=== PATIENT | male | born 1955 | race Caucasian/White ===

== ENCOUNTER 2020-08-05 14:11 | Emergency (ER) | payer OTHER ==
[~2020-08-05] VITALS: Ht 175.3 cm; Wt 88.5 kg
[~2020-08-05 14:11] MED LIST: ASPI81EC; NAPR220
[2020-08-05] MEDS ORDERED: ABAT250V (14:21)
[2020-08-05] MEDS ORDERED: ONDA4ODT MM (15:46)
[2020-08-05] MEDS ORDERED: Norco 7.5-3251 EACH PO (15:46)
== END 2020-08-05 16:03 | disposition home or self-care (01) ==
LOC: ER 14:11
DX: R11.2 Nausea with vomiting, unspecified (principal); K86.9 Disease of pancreas, unspecified; Z88.0 Allergy status to penicillin; Z88.2 Allergy status to sulfonamides; I10 Essential (primary) hypertension; G89.29 Other chronic pain; J44.9 Chronic obstructive pulmonary disease, unspecified
CPT/HCPCS: 36415; 93005; 93010; 96374; 96375; 99284-25; J0780; J1170; J7030

== ENCOUNTER 2020-08-12 10:16 | Emergency (ER) | payer OTHER ==
[~2020-08-12] VITALS: Ht 177.8 cm; Wt 86.2 kg
[~2020-08-12 10:16] MED LIST changes: +ABAT250V; +Norco 7.5-3251 EACH PO; +ONDA4ODT MM
[2020-08-12 10:40] LABS: BASOPHILS ABSOLUTE AUTO 0.05 K/mm3 (0.00-0.23); BASOPHILS PERCENT AUTO 1 % (0-2); EOSINOPHILS ABSOLUTE AUTO 0.19 K/mm3 (0.00-0.68); EOSINOPHILS PERCENT AUTO 2 % (0-6); Hematocrit 43.9 % (37.0-53.0); Hemoglobin 14.7 g/dL (13.5-17.5); IMMATURE GRAN ABSOLUTE AUTO 0.03 K/mm3 (0.00-0.10); IMMATURE GRAN PERCENT AUTO 0 % (0-1); LYMPHOCYTES ABSOLUTE AUTO 3.53 K/mm3 (0.84-5.20); LYMPHOCYTES PERCENT AUTO 32 % (21-46); MONOCYTES ABSOLUTE AUTO 1.01 K/mm3 (0.16-1.47); MONOCYTES PERCENT AUTO 9 % (4-13); Mean Corpuscular HGB 32.2 pg (26.0-34.0); Mean Corpuscular HGB Conc 33.5 g/dL (31.5-36.5); Mean Corpuscular Volume 96 fL (80-100); Mean Platelet Volume 10.6 fL (9.1-12.4); NEUTROPHILS ABSOLUTE AUTO 6.17 K/mm3 (1.96-9.15); NEUTROPHILS PERCENT AUTO 56 % (41-73); Platelet Count 218 K/mm3 (150-400); RDW Coefficient Variation 12.9 % (11.7-14.2); RDW Standard Deviation 46.5 fL (35.1-46.3); Red Blood Cell Count 4.56 M/mm3 (4.30-5.90); White Blood Cell Count 10.98 K/mm3 (4.00-11.30)
[2020-08-12 10:59] LABS: Alanine Aminotransfer (ALT/SGP 16 U/L (12-78); Albumin, Blood 3.8 g/dL (3.4-5.0); Albumin/Globulin Ratio 1.1 (0.8-1.8); Alk Phos 71 U/L (50-136); Anion Gap 6 mmol/L (6-16); Aspartate Aminotrans (AST/SGOT 17 U/L (12-37); Bilirubin, Total 0.6 mg/dL (0.1-1.0); Blood Urea Nitrogen 6 mg/dL (8-24); Bun/Creatinine Ratio 6.4 (12.0-20.0); CO2, Blood 24 mmol/L (21-32); Calcium, Blood 8.8 mg/dL (8.5-10.1); Chloride, Blood 107 mmol/L (98-108); Creatinine, Blood 0.94 mg/dL (0.60-1.20); Globulin, Blood 3.6 g/dL (2.2-4.0); Glomerular Filtration Rate >60 (60-); Glucose, Blood 101 mg/dL (70-99); Sodium, Blood 137 mmol/L (136-145); Total Protein, Blood 7.4 g/dL (6.4-8.2); Troponin I <0.015 ng/mL (0.000-0.040)
== END 2020-08-12 12:48 | disposition home or self-care (01) ==
LOC: ER 10:16
PROVIDERS: Emergency Medicine
DX: R00.1 Bradycardia, unspecified (principal); I10 Essential (primary) hypertension; J44.9 Chronic obstructive pulmonary disease, unspecified; Z88.0 Allergy status to penicillin; Z88.2 Allergy status to sulfonamides
CPT/HCPCS: 36415; 80053; 84484; 85025; 93005; 93010; 93246; 99284-25; J7030

== ENCOUNTER 2021-10-08 22:03 | Inpatient (IN) | payer OTHER ==
[~2021-10-08] VITALS: Ht 177.8 cm; Wt 63.7 kg
[2021-10-08 22:33] LABS: BASOPHILS ABSOLUTE AUTO 0.08 K/mm3 (0.00-0.23); BASOPHILS PERCENT AUTO 1 % (0-2); EOSINOPHILS PERCENT AUTO 1 % (0-6); Hematocrit 39.6 % (37.0-53.0); IMMATURE GRAN ABSOLUTE AUTO 0.19 K/mm3 (0.00-0.10); IMMATURE GRAN PERCENT AUTO 1 % (0-1); LYMPHOCYTES ABSOLUTE AUTO 4.15 K/mm3 (0.84-5.20); LYMPHOCYTES PERCENT AUTO 26 % (21-46); MONOCYTES ABSOLUTE AUTO 1.27 K/mm3 (0.16-1.47); MONOCYTES PERCENT AUTO 8 % (4-13); Mean Corpuscular HGB 32.7 pg (26.0-34.0); Mean Corpuscular HGB Conc 35.4 g/dL (31.5-36.5); Mean Corpuscular Volume 93 fL (80-100); Mean Platelet Volume 10.7 fL (9.1-12.4); NEUTROPHILS ABSOLUTE AUTO 10.05 K/mm3 (1.96-9.15); NEUTROPHILS PERCENT AUTO 63 % (41-73); Platelet Count 189 K/mm3 (150-400); RDW Coefficient Variation 13.1 % (11.7-14.2); Red Blood Cell Count 4.28 M/mm3 (4.30-5.90); White Blood Cell Count 15.94 K/mm3 (4.00-11.30)
[2021-10-08 22:44] LABS: Albumin, Blood 3.7 g/dL (3.4-5.0); Albumin/Globulin Ratio 1.3 (0.8-1.8); Bilirubin, Total 0.5 mg/dL (0.1-1.0); Bun/Creatinine Ratio 8.5 (12.0-20.0); Calcium, Blood 8.7 mg/dL (8.5-10.1); Creatinine, Blood 1.06 mg/dL (0.60-1.20); Globulin, Blood 2.9 g/dL (2.2-4.0); Potassium, Blood 3.9 mmol/L (3.5-5.5); Total Protein, Blood 6.6 g/dL (6.4-8.2)
[2021-10-08 22:53] LABS: Magnesium, Blood 2.3 mg/dL (1.6-2.4)
[2021-10-08 23:25] LABS: pH Blood Venous 7.07 (7.34-7.37)
[2021-10-08 23:52] LABS: PCO2 Venous 40.7 mmHg (38-42)
[2021-10-08 23:53] LABS: Base Excess Venous -18.2 mmol/L; Bicarbonate Venous 11.7 mmol/L (24.0-30.0)
[2021-10-08 23:56] LABS: PCO2 Arterial 35.6 mmHg (35-45); PO2 Arterial 70.4 mmHg (80-100); pH Blood Arterial 7.31 (7.35-7.45)
[2021-10-09 01:35] LABS: Anti-Xa UFH, PHA Monitoring <0.10 IU/mL; International Normalized Ratio 1.04; Prothrombin Time Results 10.9 Sec (9.7-11.5)
[2021-10-09 01:57] LABS: Source, Urine Clean Catch
[2021-10-09 02:19] LABS: Bilirubin, Urine Neg (Neg); Blood, Urine 4+ (Neg); Glucose Qualitative, Urine Neg (Neg); Ketones, Urine 3+ (Neg); Leukocyte Esterase, Urine Neg (Neg); Nitrite, Urine Neg (Neg); Protein, Urine 2+ (Neg); Urobilinogen, Urine NORM (Normal)
[2021-10-09 02:43] LABS: Appearance, Urine Clear (Clear); Color, Urine Yellow (P-Yellow)
[2021-10-09 02:44] LABS: Bacteria Not Seen /hpf; Squamous Epithelial Cells Not Seen /hpf (Few); White Blood Cells, Urine Not Seen /hpf (0-5)
--- NOTE | 2021-10-09 03:00 | NUR ---
ASSUMED CARE OF PT @ 0300. PT PRESENTED RESTLESS AND AGITATED IN BED. PT HAS HEPARIN INFUSING AT 15 UNITS/KG/HR. PT FOLLOWS COMMANDS BUT NEEDS FREQUENT REDIRECTION. PT FRIEND TORI AT BEDSIDE. VSS. TEMP SÁNCHEZ PATENT AND DRAINING. PT NOTED TO HAVE SCABBED LACERATIONS TO RIGHT FORHEAD AND RIGHT BROW.
[2021-10-09 03:24] LABS: BASOPHILS ABSOLUTE AUTO 0.03 K/mm3 (0.00-0.23); BASOPHILS PERCENT AUTO 0 % (0-2); EOSINOPHILS ABSOLUTE AUTO 0.03 K/mm3 (0.00-0.68); EOSINOPHILS PERCENT AUTO 0 % (0-6); Hemoglobin 13.2 g/dL (13.5-17.5); IMMATURE GRAN ABSOLUTE AUTO 0.13 K/mm3 (0.00-0.10); IMMATURE GRAN PERCENT AUTO 1 % (0-1); LYMPHOCYTES ABSOLUTE AUTO 1.93 K/mm3 (0.84-5.20); LYMPHOCYTES PERCENT AUTO 12 % (21-46); MONOCYTES ABSOLUTE AUTO 0.99 K/mm3 (0.16-1.47); MONOCYTES PERCENT AUTO 6 % (4-13); Mean Corpuscular HGB 32.5 pg (26.0-34.0); Mean Corpuscular HGB Conc 34.7 g/dL (31.5-36.5); Mean Corpuscular Volume 94 fL (80-100); Mean Platelet Volume 10.4 fL (9.1-12.4); NEUTROPHILS ABSOLUTE AUTO 13.34 K/mm3 (1.96-9.15); NEUTROPHILS PERCENT AUTO 81 % (41-73); Platelet Count 163 K/mm3 (150-400); RDW Coefficient Variation 13.2 % (11.7-14.2); RDW Standard Deviation 45.7 fL (35.1-46.3); Red Blood Cell Count 4.06 M/mm3 (4.30-5.90); White Blood Cell Count 16.45 K/mm3 (4.00-11.30)
[2021-10-09 03:43] LABS: Albumin, Blood 3.6 g/dL (3.4-5.0); Albumin/Globulin Ratio 1.3 (0.8-1.8); Bilirubin, Total 0.5 mg/dL (0.1-1.0); Bun/Creatinine Ratio 7.8 (12.0-20.0); Calcium, Blood 8.1 mg/dL (8.5-10.1); Creatinine, Blood 1.16 mg/dL (0.60-1.20); Globulin, Blood 2.8 g/dL (2.2-4.0); Potassium, Blood 3.9 mmol/L (3.5-5.5); Total Protein, Blood 6.4 g/dL (6.4-8.2)
[2021-10-09 04:39] LABS: Magnesium, Blood 2.5 mg/dL (1.6-2.4)
[2021-10-09 05:14] LABS: Source, Urine Foley catheter
[2021-10-09 05:24] LABS: Bilirubin, Urine Neg (Neg); Blood, Urine 4+ (Neg); Glucose Qualitative, Urine Neg (Neg); Ketones, Urine 2+ (Neg); Leukocyte Esterase, Urine 1+ (Neg); Nitrite, Urine Neg (Neg); Protein, Urine 2+ (Neg); Specific Gravity, Urine 1.025 (1.003-1.022); Urobilinogen, Urine NORM (Normal)
--- NOTE | 2021-10-09 05:30 | NUR ---
SHIFT SUMMARY PATIENT REMAINS IN [facility] W/ MONITOR RATE 80'S AND SPO2 RATE 40'S. BP HYPOTENSIVE WHEN HIGH SIDE LYING AN DBP CUFF IN ON ELEVATED ARM. PATIENT HAS SLEPT FOR THE PAST HOUR AND A HALF AFTER FINISHING ADMIT. REPOSITIONS SELF INDEPENDENTLY IN BED. SPO2 MAINTAINS HIGH 90'S-100% ON ROOM AIR. COVID TEST AND UA SENT TO LAB. HEPARIN REMAINS @ 15 UNITS/KG/HR AND LR @ 500ML/HR X 1 BAG. AFTER BAG FINISHES, RATE TO BE DECREASED TO 150ML/HR. NO OTHER CHANGES DURING SHIFT.
[2021-10-09 05:41] LABS: U Amphetamine Screen Not Detected; U Barbituate Screen Not Detected; U Benzodiazapine Screen DETECTED; U Buprenorphine Screen Not Detected; U Cannabinoids Screen DETECTED; U Cocaine Screen Not Detected; U Methadone Screen Not Detected; U Methamphetamine Screen Not Detected; U Opiates Screen Not Detected; U Oxycodone Screen Not Detected; U Phencyclidine Screen Not Detected; U Propoxyphene Screen Not Detected
[2021-10-09 05:59] LABS: Appearance, Urine Clear (Clear); Color, Urine Yellow (P-Yellow)
[2021-10-09 06:03] LABS: Bacteria Not Seen /hpf; Renal Epithelial Rare /hpf (0-Rare); Squamous Epithelial Cells Few /hpf (Few)
[2021-10-09 06:30] LABS: Influenza A, PCR NEGATIVE (NEGATIVE); Influenza B, PCR NEGATIVE (NEGATIVE); Resp Syncytial Virus, PCR NEGATIVE (NEGATIVE); SARS-Cov-2 (COVID-19) PCR, MMC NEGATIVE (NEGATIVE)
--- NOTE | 2021-10-09 07:15 | NUR ---
Assumed care of pt at 0700. Report received from María Elena Brennan RN. Pt A&O x 3. Answers questions, follows commands. Verbalizes needs. Pleasant and cooperative with care. SpO2 90% or greater with room air. SR per monitor with bigeminal PVCs. NPO awaiting cardiology.
--- NOTE | 2021-10-09 08:11 | NUR ---
Dr Evans in to see patient. Provider states patient does not want angiogram at this time. Plan to provide diet for patient and patient wants to work with physical therapy. Okay per Dr Evans.
[2021-10-09 08:42] LABS: Creatine Kinase MB 13.6 ng/mL (0.0-3.6)
--- NOTE | 2021-10-09 11:43 | NUR ---
Dr Montgomery in to see patient again. Provider educates patient that considering his troponin and echocardiogram results, he is currently having a heart attack. Patient uninterested in engaging in conversation. Educated patient that this dicussion is necesasry as he is a critically ill patient in intensive care and the team wants to respect his wishes. Clarified that angiogram is necessary treatement. Patient reinforces that he does not want an angiogram. Educated that without this procedure pt is at risk for further heart damage and even . Patient states "I've been dying for 12 years". Asked patient if he would want CPR if his heart stops, pt states "no". Elinor, his friend at bedside asks him if he wants to be a DNR, patient states "basically". Further clarified that this means no intubation, no CPR, no ACLS medications, and no defibrillation. When asked if this matches patients wants, he states "yes". Dr Montgomery and this RN summarize care to pt and friend that pt is choosing not to have an angiogram and pt wishes to be DNR.
--- NOTE | 2021-10-09 12:30 | NUR ---
Dr Sanchez in to see patient. Patient more interested in talking to Dr Sanchez than he is Dr Evans. Dr Sanchez clairifed that patient does not want angiogram and pt agreed. Provider asked pt if he wanted to go home today and pt states he did. When asked if he would take prescribed medications, pt stated he would be willing to. Plan to discharge patient.
--- NOTE | 2021-10-09 12:59 | NUR ---
Pt's friend, Elinor, in to see patient. Discussed plan to discharge patient as he was not wanting to receive treatment options that hospital is providing and would prefer to go home. Elinor verbalizes understanding the importance of respecting patients autonomy and understanding of plan to continue with PO medications. Also reminded that pt is welcome to change his mind at any time regarding angiogram between now and time of discharge; upon discharge, pt is welcome to come back to emergency department for treatment if he changes his mind.
[2021-10-09] MEDS ORDERED: METO25ER PO (13:16)
[2021-10-09] MEDS ORDERED: ASPI81CH PO (13:16)
[2021-10-09] MEDS ORDERED: ATOR40TA PO (13:16)
--- NOTE | 2021-10-09 15:00 | NUR ---
pt resting most of the time. Me with his friend and poa. She relays the past few monthsmonths he has declined. He has lost weight. He has been eating less. Patient has had minimal care medically. He has not seen oncolgy since 2020. He has not followed up with oncology at [facility]. Pt is refusing any intervention, with the weight loss and frailty and now a cardiac event suspect cancer. Pt adamant about returning home. This is a very poor and risky choice. Several attemtpts by phsycians to get him to accept care. Will send a packet to [facility] team. If he will accept help form anyone it will be them. Reccomend hospice. pt kps score is 20% pt rsik for sudden . Suspect he understands how sick he is and wants to be home. Will follow up and offer support.
--- NOTE | 2021-10-09 15:17 | NUR ---
SUMMARY Pt discharged from unit at 1345 accompanied by friend, Elinor, and this RN. Deperted via wheel chair. Transferred to automobile with one person min assist. Tolerated activity well. Discharge education given to Elinor, who plans to pick pulling machine tender pt's medications from [place].
== END 2021-10-09 13:51 | disposition home or self-care (01) | DRG 280 ==
LOC: ER 22:03 → ICUW 10-09 01:38
PROVIDERS: Family Medicine; Internal Medicine Interventional Cardiology; Student in an Organized Health Care Education/Training Program; ADMIT Internal Medicine
DX: I21.4 Non-ST elevation (NSTEMI) myocardial infarction (principal); R57.0 Cardiogenic shock; E87.2 Acidosis; Z20.822 Contact with and (suspected) exposure to COVID-19; Z66 Do not resuscitate; I10 Essential (primary) hypertension; J44.9 Chronic obstructive pulmonary disease, unspecified; M54.9 Dorsalgia, unspecified; R56.9 Unspecified convulsions; F17.210 Nicotine dependence, cigarettes, uncomplicated; G89.29 Other chronic pain; F32.A Depression, unspecified; Z85.528 Personal history of other malignant neoplasm of kidney; Z90.89 Acquired absence of other organs; Z88.0 Allergy status to penicillin; Z88.2 Allergy status to sulfonamides
CPT/HCPCS: 0241U; 36415; 36600; 51702; 70450; 71045; 71275; 72125; 74175; 80053; 81001; 82550; 82553; 82803; 83605; 83735; 83880; 84145; 84146; 84484; 85025; 85520; 85610; 87040; 87086; 93005; 93010; 96365; 96367; 96375; 99285-25; A9270; C8929; J0461; J0692; J1644; J1953; J2060; J3370; J7030; J7120; Q9957; Q9967

== ENCOUNTER 2025-01-22 06:58 | Emergency (ER) | payer OTHER ==
[~2025-01-22] VITALS: Ht 175.3 cm; Wt 61.2 kg
[~2025-01-22 06:58] MED LIST changes: +ASPI81CH PO; +ATOR40TA PO; +METO25ER PO
[2025-01-22 07:19] VITALS: BP 203/91
[2025-01-22] MEDS ORDERED: Pantoprazole Sodium 40 MG Injection IV ONE (07:20)
[2025-01-22] MEDS ORDERED: Morphine Sulfate 4 MG/1 ML Injection IV ONE (07:20)
[2025-01-22] MEDS ORDERED: Ondansetron HCl 2 MG / ML 2ML Vial IV ONE (07:20)
[2025-01-22] MEDS ORDERED: NS 1,000 ML IV SCH (07:20)
[2025-01-22 07:25] LABS: BASOPHILS ABSOLUTE AUTO 0.04 K/mm3 (0.00-0.23); BASOPHILS PERCENT AUTO 0 % (0-2); EOSINOPHILS ABSOLUTE AUTO 0.01 K/mm3 (0.00-0.68); EOSINOPHILS PERCENT AUTO 0 % (0-6); Hematocrit 40.3 % (37.0-53.0); Hemoglobin 14.1 g/dL (13.5-17.5); IMMATURE GRAN ABSOLUTE AUTO 0.04 K/mm3 (0.00-0.10); IMMATURE GRAN PERCENT AUTO 0 % (0-1); LYMPHOCYTES ABSOLUTE AUTO 1.54 K/mm3 (0.84-5.20); LYMPHOCYTES PERCENT AUTO 14 % (21-46); MONOCYTES ABSOLUTE AUTO 0.56 K/mm3 (0.16-1.47); MONOCYTES PERCENT AUTO 5 % (4-13); Mean Corpuscular HGB Conc 35.0 g/dL (31.5-36.5); Mean Corpuscular Volume 94 fL (80-100); NEUTROPHILS ABSOLUTE AUTO 9.11 K/mm3 (1.96-9.15); NEUTROPHILS PERCENT AUTO 81 % (41-73); NRBC ABSOLUTE 0.00 K/mm3 (0.00-0.02); NRBC Auto 0.0 /100 WBC (0.0-0.2); Platelet Count 236 K/mm3 (150-400); RDW Coefficient Variation 13.5 % (11.7-14.2); RDW Standard Deviation 46.4 fL (35.1-46.3)
[2025-01-22 07:38] LABS: Prothrombin Time Results 10.9 Sec (9.7-11.5)
[2025-01-22 07:40] LABS: Alanine Aminotransfer (ALT/SGP 19 U/L (12-78); Albumin, Blood 4.1 g/dL (3.4-5.0); Albumin/Globulin Ratio 1.1 (0.8-1.8); Anion Gap 11 mmol/L (3-11); Aspartate Aminotrans (AST/SGOT 23 U/L (12-37); Bilirubin, Total 0.7 mg/dL (0.1-1.0); Blood Urea Nitrogen 11 mg/dL (8-24); CO2, Blood 23 mmol/L (21-32); Calcium, Blood 9.6 mg/dL (8.5-10.1); Chloride, Blood 102 mmol/L (98-108); Creatinine, Blood 0.75 mg/dL (0.60-1.20); Ethanol (Alcohol), Blood, Med <3 mg/dL; Globulin, Blood 3.7 g/dL (2.2-4.0); Glucose, Blood 129 mg/dL (70-99); Magnesium, Blood 1.8 mg/dL (1.6-2.4); Potassium, Blood 3.8 mmol/L (3.5-5.5); Sodium, Blood 132 mmol/L (136-145); Total Protein, Blood 7.8 g/dL (6.4-8.2)
[2025-01-22] MEDS ORDERED: OMEP20ER PO (09:00)
[2025-01-22] MEDS ORDERED: OXYC5 PO (09:00)
[2025-01-22] MEDS ORDERED: ONDA4ODT MM (09:00)
== END 2025-01-22 09:25 | disposition home or self-care (01) ==
LOC: ER 06:58
PROVIDERS: Emergency Medicine
DX: K92.0 Hematemesis (principal); J44.9 Chronic obstructive pulmonary disease, unspecified; I11.0 Hypertensive heart disease with heart failure; I50.30 Unspecified diastolic (congestive) heart failure; Z79.82 Long term (current) use of aspirin; Z79.899 Other long term (current) drug therapy; Z88.0 Allergy status to penicillin; Z88.2 Allergy status to sulfonamides
CPT/HCPCS: 80053; 80320; 83605; 83690; 83735; 85025; 85610; 86850; 86900; 86901; 93005; 93010; 96374; 96375; 99284-25; J2270; J2405; J2470; J7030